=== PATIENT | female | born 1995 | race Caucasian/White ===

== ENCOUNTER 2016-08-19 14:16 | Inpatient (IN) | payer OTHER ==
[~2016-08-19] VITALS: Ht 162.6 cm; Wt 55.3 kg
[2016-08-19 22:59] LABS: *URINE HCG, QUAL NEGATIVE (NEGATIVE)
[2016-08-19 23:00] VITALS: BP 120/76
[2016-08-19 23:03] LABS: *AMPHETAMINE, URINE POSITIVE (NEGATIVE); *BARBITURATE, URINE NEGATIVE (NEGATIVE); *CANNABINOID, URINE NEGATIVE (NEGATIVE); *COCCAINE, URINE NEGATIVE (NEGATIVE); *OPIATE, URINE POSITIVE (NEGATIVE); *PHENCYCLIDINE SCREEN,URINE NEGATIVE (NEGATIVE)
[2016-08-19] MEDS ORDERED: BUPRENORPHINE HCL 2 MG TAB.SUBL SL PRN (23:30)
[2016-08-19] MEDS ORDERED: MAGNESIUM HYDROXIDE 30 ML LIQUID UDC PO PRN (23:30)
[2016-08-19] MEDS ORDERED: LOPERAMIDE HCL 2 MG CAPSULE PO PRN ×2 (23:30)
[2016-08-19] MEDS ORDERED: DIAZEPAM 5 MG TABLET PO PRN (23:30)
[2016-08-19] MEDS ORDERED: ACETAMINOPHEN 325 MG TABLET PO PRN (23:30)
[2016-08-19] MEDS ORDERED: LORAZEPAM 2 MG/1 ML VIAL IM PRN (23:30)
[2016-08-19] MEDS ORDERED: MAG HYDROX/AL HYDROX/SIMETH 30 ML LIQUID UDC PO PRN (23:30)
[2016-08-19] MEDS ORDERED: diphenhydrAMINE 50 MG CAPSULE PO PRN (23:30)
[2016-08-19] MEDS ORDERED: DIAZEPAM 10 MG TABLET PO PRN (23:30)
[2016-08-19] MEDS ORDERED: DICYCLOMINE HCL 20 MG TABLET PO PRN (23:30)
[2016-08-19] MEDS ORDERED: DIAZEPAM 10 MG TABLET ONE (23:48)
[2016-08-19] MEDS ORDERED: METHOCARBAMOL 750 MG TABLET ONE (23:51)
[2016-08-19] MEDS ORDERED: IBUPROFEN 400 MG TABLET ONE (23:52)
[2016-08-20] VITALS (9 sets, daily range): BP systolic 103–118; BP diastolic 64–76
[2016-08-20] MEDS: DIAZEPAM 10 MG TABLET PO PRN ×2 (00:11→08:13)
[2016-08-20] MEDS: ONDANSETRON ODT 4 MG TAB.RAPDIS SL PRN (00:11)
[2016-08-20] MEDS: IBUPROFEN 400 MG TABLET PO PRN ×2 (00:11→20:42)
[2016-08-20] MEDS: METHOCARBAMOL 750 MG TABLET PO PRN (00:11)
--- NOTE | 2016-08-20 00:12 | NUR ---
PRN Valium, Robaxin, Zofran, and Motrin Pt c/o feeling "very anxious", with generalized body aches, nausea, and headache. B/P 112/76, HR 129, RR 16, O2 sat 100%. COWS 7 and CIWA 9. PRN Valium, Robaxin, Zofran and Motrin administered.
[2016-08-20] MEDS ORDERED: ONDANSETRON ODT 4 MG TAB.RAPDIS ONE (00:15)
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
[2016-08-20 00:47] LABS: ALANINE AMINOTRANSFERASE 22 U/L (14-59); ALBUMIN 3.8 g/dL (3.4-5.0); ALKALINE PHOSPHATASE 59 U/L (50-136); AMYLASE 18 U/L (25-115); ASPARTATE AMINOTRANSFERASE 23 U/L (15-37); BILIRUBIN,TOTAL 0.4 mg/dL (0.2-1.0); CALCIUM 9.1 mg/dL (8.5-10.1); CARBON DIOXIDE 32 mmol/L (21-32); CHLORIDE 98 mmol/L (98-107); CREATININE 0.7 mg/dL (0.6-1.3); GFR 105 mL/min (>60); GLUCOSE 100 mg/dL (74-106); LIPASE 91 U/L (73-393); MAGNESIUM 1.7 mg/dL (1.8-2.4); POTASSIUM 4.1 mmol/L (3.5-5.1); SODIUM SERUM 135 mmol/L (136-145); TOTAL PROTEIN, SERUM 7.4 g/dL (6.4-8.2); UREA NITROGEN, BLOOD 11 mg/dL (7-18)
[2016-08-20 00:53] LABS: ETHANOL < 3 MG/DL (0-0)
[2016-08-20 00:54] LABS: BASOPHILS % (AUTO) 0.4 % (0.0-2.0); EOSINOPHILS # (AUTO) 0.1 K/uL (0.0-0.7); EOSINOPHILS % (AUTO) 2.3 % (0.0-7.0); HEMATOCRIT 37.7 % (31.2-41.9); HEMOGLOBIN 12.7 g/dL (10.9-14.3); LYMPHOCYTES # (AUTO) 0.6 K/uL (20.0-40.0); LYMPHOCYTES % (AUTO) 10.3 % (20.5-51.5); MEAN CORPUSCULAR HEMOGLOBIN 29.4 uug (24.7-32.8); MEAN CORPUSCULAR HGB CONC 34 g/dL (32.3-35.6); MEAN CORPUSCULAR VOLUME 87.1 fL (75.5-95.3); MONOCYTES # (AUTO) 0.5 K/uL (2.0-10.0); MONOCYTES % (AUTO) 7.6 % (0.0-11.0); NEUTROPHILS # (AUTO) 4.9 K/uL (1.8-8.9); NEUTROPHILS % (AUTO) 79.4 % (38.5-71.5); PLATELET COUNT (AUTO) 233 K/uL (179-408); RED BLOOD CELL COUNT(AUTO) 4.33 MIL/uL (3.63-4.92); WHITE BLOOD COUNT (AUTO) 6.1 K/uL (3.8-11.8)
[2016-08-20 00:58] LABS: THYROID STIMULATING HORMONE 0.496 mIU/mL (0.358-3.740)
[2016-08-20 01:02] LABS: HIV-1 p24 ANTIGEN NON REACTIVE (NONREACTIVE); HIV-1/2 ANTIBODY NON REACTIVE (NONREACTIVE)
--- NOTE | 2016-08-20 01:12 | NUR ---
PRN Valium, Robaxin, Motrin and Zofran reassessed PRN Valium somewhat effective. PRN Robaxin, Motrin, and Zofran effective. Pt was able to fall asleep. When woken for reassessment she reports feeling somewhat more relaxed and that body aches, headache, and nausea are relieved. B/P 110/72 and HR 112. No further medications requested.
[2016-08-20] MEDS ORDERED: MAGNESIUM OXIDE 400 MG TABLET ONE (03:29)
[2016-08-20] MEDS ORDERED: MAGNESIUM OXIDE 400 MG TABLET PO ONE (04:00)
[2016-08-20] MEDS ORDERED: CLONAZEPAM 1 MG TABLET ONE (04:04)
[2016-08-20] MEDS ORDERED: CLONIDINE HCL 0.1 MG TABLET ONE (04:05)
[2016-08-20] MEDS: CLONIDINE HCL 0.1 MG TABLET PO PRN (04:05)
--- NOTE | 2016-08-20 04:06 | NUR ---
PRN Clonidine administration Pt woke up and reports feeling anxious. Her demeanor and facial expression show worry. B/P 118/75 and HR 110. COWS 5 and CIWA 6. PRN Clonidine administered.
--- NOTE | 2016-08-20 04:07 | NUR ---
Magnesium Supplemented Mag Ox administered for Mg level 1.7
--- NOTE | 2016-08-20 05:05 | NUR ---
PRN Clonidine reassessment PRN Clonidine somewhat effective. Pt reports feeling somewhat more relaxed but has been unable to fall asleep. B/P 116/70 and HR 108. She is in bed writing at this time.
[2016-08-20] MEDS: HYDROXYZINE PAMOATE 25 MG CAPSULE PO PRN (06:00)
[2016-08-20] MEDS ORDERED: HYDROXYZINE PAMOATE 25 MG CAPSULE ONE (06:04)
--- NOTE | 2016-08-20 06:04 | NUR ---
PRN Vistaril administration Pt woke up and reports feeling anxious. B/P 115/72 and HR 123. COWS 5 and CIWA 6. PRN Vistaril administered.
--- NOTE | 2016-08-20 07:22 | NUR ---
END OF SHIFT Report provided to day shift nurse. Pt in her room resting. She is a 21 yo female admitted to [facility] on 08/19 for Opiate and BZD dependence. Pt was tachycardic and reported feeling anxiety. PRN Valium, Robaxin, Motrin, Zofran, Clonidine, and Vistaril. Last COWS 5 and CIWA 6. She drank 500mL and slept for 2 hours.
[2016-08-20] MEDS ORDERED: DIPH25TA62 PO (08:04)
[2016-08-20] MEDS ORDERED: BISA-79 PO (08:04)
[2016-08-20] MEDS: MULTIVITAMINS,THERAPEUTIC TABLET PO SCH (08:12)
--- NOTE | 2016-08-20 08:20 | NUR ---
START OF SHIFT: RECEIVED PT A/O X 4. SHE PRESENTS WITH ANXIOUS MOOD AND AFFECT. PUPILS PIN POINT. SHE C/O SWEATS,ANXIETY,RESTLESS AND STATES SHE ONLY SLEPT A COUPLE OF HOURS. CIWA 9 COWS 5 PRN VALIUM 10 MG PO GIVEN AT 0815 FOR S/S OF W/D.. ENCOURAGED INCREASED FLUIDS AND REST TODAY. TO ASSESS PT THIS AM. PRNS AVAILABLE FOR S/S OF W/D. PPD PLANTED TO LFA. WILL CONTINUE TO MONITOR AND PROVIDE SAFE AND SUPPORTIVE ENVIRONMENT
--- NOTE | 2016-08-20 08:45 | NUR ---
PRN VALIUM EFFECTIVE. CIWA 6. WILL CONTINUE TO MONITOR.
[2016-08-20] MEDS ORDERED: TUBERCULIN,PURIF.PROT.DERIV. 5 TU/0.1 ML TEST ID ONE (09:00)
--- NOTE | 2016-08-20 12:36 | NUR ---
PRN VALIUM 5 MG PO GIVEN FOR CIWA 6. WILL MONITOR EFFECTIVENESS.
--- NOTE | 2016-08-20 13:06 | NUR ---
PRN VALIUM EFFECT AEB CIWA 3. WILL CONTINUE TO MONITOR.
[2016-08-20] MEDS: GABAPENTIN 300 MG CAPSULE PO SCH ×2 (14:48→20:40)
[2016-08-20] MEDS: BUPRENORPHINE HCL 2 MG TAB.SUBL SL SCH ×3 (14:48→20:41)
--- NOTE | 2016-08-20 14:49 | NUR ---
VSS COWS 16 CIWA 14 C/O sweating/chills, body aches, N+V and anxiety. Subutex 4mg sl and Valium 5mg po administered as ordered.
[2016-08-20] MEDS ORDERED: DIAZEPAM 5 MG TABLET PO ONE (15:00)
--- NOTE | 2016-08-20 15:54 | NUR ---
AT BEDSIDE. PT REPORTS TIGHTNESS TO CHEST AND STATES SHE FEELS LIKE SHE IS HAVING A PANIC ATTACK MD STATES NEW ORDERS FOR EKG AND INDERAL X 1. WILL CARRY OUT ORDERS.
[2016-08-20] MEDS ORDERED: PROPRANOLOL HCL 20 MG TABLET PO ONE (16:00)
--- NOTE | 2016-08-20 16:26 | NUR ---
INDERAL EFFECTIVE PT IS ASLEEP.RESPIRATIONS EVEN AND UNLABORED. CALL MARIA IN REACH. BED LOCKED AND LOW.
[2016-08-20] MEDS: DIAZEPAM 10 MG TABLET PO SCH ×2 (17:17→20:40)
--- NOTE | 2016-08-20 17:43 | NUR ---
PT PLACE ON 1:1 SITTER FOR FALL PREVENTION. SIDE RAILS PADDED. HELD 1800 SUBUTEX PER MD FOR SEDATION. WILL CONTINUE TO MONITOR.
--- NOTE | 2016-08-20 19:23 | NUR ---
END OF SHIFT: PT IS ON VALIUM/SUBUTEX TAPER. MD MODIFIED TAPER PT BECAME OVER SEDATED AND 1800 SUBUTEX HELD PER MD.1:1 SITTER AT BEDSIDE FOR SAFETY. LAST COWS 6 CIWA 4. PT C/O CHEST TIGHTNESS AND ANXIETY AND MD ORDERED INDERAL WHICH WAS ADMINISTERED AND EFFECTIVE. PT HAS A CLOSED AREA THAT SHE STATES IS AN ABSCESS. DOXYCYCLINE TO START TONIGHT PER MD. PRN VALIUM X 2 IN AM AND EFFECTIVE BEFORE TAPER STARTED TODAY. ENCORAGED INCREASED FLUIDS. WILL PASS SHIFT REPORT TO ONCOMING NIGHT NURSE.
--- NOTE | 2016-08-20 20:10 | NUR ---
2009 Nurse called down to hospital [facility] for patient assist. Patient found out of wheelchair, lying on patio floor with pillow underneath head. 1 to 1 BHTBecca, at patient's side and she states that patient 'seems' to have had a seizure, lasting less than 15 seconds. Patient's color is pink and she is oriented to person, place, day and her personal situation. Reoriented to date and time. Patient denies any pain. B/P 121/76, P 95 R 18. Patient assisted into wheelchair with n problem Patient state, " I need to have a cigarette before I go anywhere" Patient advised that for her safety, she will be wheeled back to her room # 327. Patient is in no acute distress at this time.
--- NOTE | 2016-08-20 20:15 | NUR ---
2015 Please see SBAR for 2015.
--- NOTE | 2016-08-20 20:20 | NUR ---
Patient awake, though somewhat drowsy and insisting on going to hospital patio for cigarette. Patient advocate, Lele in to certified travel counselor patient.
[2016-08-20] MEDS: LACTOBACILLUS RHAMNOSUS GG 1 EACH CAPSULE PO SCH (20:39)
[2016-08-20] MEDS: DOXYCYCLINE HYCLATE 100 MG TABLET PO SCH (20:40)
--- NOTE | 2016-08-20 20:42 | NUR ---
PRN MEDICATION: Prn Motrin 400 mg p.o. given per c/o headache, 6/10 pain scale.
--- NOTE | 2016-08-20 21:05 | NUR ---
Dr. Molina at nurse's station and he was informed verbally by this nurse about patient's '15 second, possible seizure' noted on hospital patio at 2009, and that patient is insisting frequently, on going back down to the patio to smoke and has threatened to go AMA if she is not allowed to do this. Dr. Molina states to this nurse that patient is to be on "strict room restriction" along with her continued 1 to 1 staff for her safety, as " we take the S word very seriously". Patient so informed per nursing scope.
--- NOTE | 2016-08-20 21:42 | NUR ---
REASSESSMENT PRN MEDICATION: Patient is sleeping with eyes partially closed and quiet, even, unlabored respirations noted at 12. When patient asked if headache was relieved, with prompting, patient slowly nodded her head.
[2016-08-21] VITALS: BP 113/65
--- NOTE | 2016-08-21 | NUR ---
Vital signs are: 98.7-108-14 113/65, O2 Sat 98%. Patient totally uncooperative with CIWA/COWS assessments at this time.
[2016-08-21] MEDS: METHOCARBAMOL 750 MG TABLET PO PRN ×2 (02:41→21:34)
[2016-08-21] MEDS: HYDROXYZINE PAMOATE 25 MG CAPSULE PO PRN (02:41)
[2016-08-21] MEDS: CLONIDINE HCL 0.1 MG TABLET PO PRN (02:41)
--- NOTE | 2016-08-21 02:41 | NUR ---
PRN MEDICATIONS: Patient awake and agitated, loudly saying " I feel like sh-t and I need to have a cigarette now !!" I feel hot flashes, I ache all over and I am nauseous, I think". COWS 6, CIWA 5. 112/61, P 112. Prn Catapres 0.1 mg p.o. given for c/o withdrawal symptoms, Prn Vistaril 50 mg p.o. given for c/o anxiety and Prn Robaxin 750 mg p.o. given for c/o body, muscle aches, " about a 6", 1-10 pain scale.
[2016-08-21] MEDS: ONDANSETRON ODT 4 MG TAB.RAPDIS SL PRN (02:42)
--- NOTE | 2016-08-21 02:42 | NUR ---
PRN MEDICATION: Prn Zofran 0.4 mg SL given for c/o nausea.
--- NOTE | 2016-08-21 03:42 | NUR ---
REASSESSMENT PRN MEDICATIONS: Patient is sleeping soundly in low semi-fowlers position, with eyes closed and respirations quiet, deep, even, unlabored 12. 1 to 1 staff continues at patient's bedside.
[2016-08-21 04:00] VITALS: BP 111/66
--- NOTE | 2016-08-21 04:00 | NUR ---
Vital signs are: 98.6-110-12 111/66 O2 Sat 99%, COWS 3, CIWA 4.
--- NOTE | 2016-08-21 06:30 | NUR ---
0630 Patient slept a total of 7 hours and she had 4 voids and 1 stools in bathroom. Patient steady when up to the bathroom with minimal assist. Total intake was 795 ml p.o. Multiple prn medications given noted separately per floor protocol. V/SS afebrile, COWS 3, COWS 4. Patient drug-seeking, frequently, when awake, asking nurse, " Do you have a shot? Those drugs I can get aren't going to do anything" When can I get the next amount of subs ? When can I get a shot?" If I don't get what I need and get to go downstairs for a cigarette, I will have to leave. I mean I'm not ready and I been wanting to go get high all day long!" Patient is presently sleeping comfortably with eyes closed and respirations quiet, even, unlabored at 12. 1 to 1 staff continues at patient's bedside.
--- NOTE | 2016-08-21 07:00 | NUR ---
start of shift note: received pt from coffee maker servicer nurse, pt at this time remains on 1:1 for seizure/safety precautions. at this time pt is resting in bed. V/S taken and are WNL. pt with complaints of generalized body pain. pt is [facility] for benzo/opiate/meth withdrawal/dependence. will continue to monitor pt for A/R to taper medications
[2016-08-21] MEDS: LACTOBACILLUS RHAMNOSUS GG 1 EACH CAPSULE PO SCH ×2 (08:18→21:34)
[2016-08-21] MEDS: DOXYCYCLINE HYCLATE 100 MG TABLET PO SCH ×2 (08:19→21:34)
[2016-08-21] MEDS: BUPRENORPHINE HCL 2 MG TAB.SUBL SL SCH ×3 (08:19→21:34)
[2016-08-21] MEDS: GABAPENTIN 300 MG CAPSULE PO SCH ×3 (08:19→21:34)
[2016-08-21] MEDS: DIAZEPAM 10 MG TABLET PO SCH ×3 (08:19→21:34)
[2016-08-21] MEDS: MULTIVITAMINS,THERAPEUTIC TABLET PO SCH (08:20)
[2016-08-21 08:45] LABS: CALCIUM 8.8 mg/dL (8.5-10.1); CREATININE 0.8 mg/dL (0.6-1.3); MAGNESIUM 1.8 mg/dL (1.8-2.4); PHOSPHOROUS 4.4 mg/dL (2.5-4.9); POTASSIUM 4.4 mmol/L (3.5-5.1)
[2016-08-21 09:15] LABS: EOSINOPHILS # (AUTO) 0.1 K/uL (0.0-0.7); EOSINOPHILS % (AUTO) 1.1 % (0.0-7.0); HEMATOCRIT 36.7 % (37-47); HEMOGLOBIN 12.3 G/DL (12.0-16.0); LYMPHOCYTES # (AUTO) 1.1 K/uL (20.0-40.0); LYMPHOCYTES % (AUTO) 14.1 % (20.5-51.5); MEAN CORPUSCULAR HEMOGLOBIN 29.1 UUG (27.0-31.0); MEAN CORPUSCULAR HGB CONC 34 g/dL (32.0-37.0); MEAN CORPUSCULAR VOLUME 86.7 FL (81.0-99.0); MONOCYTES # (AUTO) 0.8 K/uL (2.0-10.0); MONOCYTES % (AUTO) 10.3 % (0.0-11.0); NEUTROPHILS # (AUTO) 5.9 K/uL (1.8-8.9); NEUTROPHILS % (AUTO) 74.5 % (38.5-71.5); PLATELET COUNT (AUTO) 227 K/UL (150-450); RED BLOOD CELL COUNT(AUTO) 4.23 MIL/UL (4.2-5.4); RED CELL DISTRIBUTION WIDTH 12.3 % (11.5-14.5); WHITE BLOOD COUNT (AUTO) 7.9 K/UL (4.0-11.2)
[2016-08-21 09:45] VITALS: BP 101/72
[2016-08-21 14:00] VITALS: BP 103/60
[2016-08-21 14:08] LABS: HEPATITIS B CORE AB, IgM Negative (Negative); HEPATITIS B SURFACE AG Negative (Negative)
[2016-08-21] MEDS: KETOROLAC TROMETHAMINE 30 MG INJ IM PRN (15:52)
--- NOTE | 2016-08-21 15:52 | NUR ---
PRN medication administration: pt with complaints of pain on generalized boy and right AC area. Toradol IM was administered pain scale 8/10. will reassess pt
--- NOTE | 2016-08-21 16:43 | NUR ---
prn reassessment toradol was effective pt states she feels better and is able to perform ADLS at this time.
[2016-08-21 18:04] VITALS: BP 109/74
--- NOTE | 2016-08-21 18:28 | NUR ---
end of shift note: pt at this time is in stable condition at this time no s/s of pain or discomfort. pt is [facility] for opiate/benzo/meth withdrawal/dependence. pt's last cows is 5 and ciwa 4. pt remains on 1:1 for seizure precaution and safety. towards the afternoon pt received toradol IM, pt after 1 hr has a pain level of 3, pt is no longer using a wheelchair and pt no longer has unsteady gait. pt without seizure activity throughout the shift. will endorse pt to warehouse shift supervisor nurse
--- NOTE | 2016-08-21 19:15 | NUR ---
Start of Shift Note: Patient is a 21 y/o female admitted on 08/19/16 for Opiate and Benzo dependence. Patient has Hiatal hernia, Esophageal Atresia, Slow gastric emptying, Right knee surgery, Sinus Surgery, Depression & Anxiety. Patient is on a regular diet and with allergies to Mushrooms. Full Code status. Seizure and Fall precaution. Patient is on a 5-day Valium & 5-day Subutex taper and tolerating well. Last COWS is 5 CIWA 4. Patient was given PRN Toradol during day shift. Patient is on 1:1 observation for seizure precaution and safety. Patient is alert & oriented name, place & situation. No shortness of breath noted. Respiration even & unlabored. Abdomen soft & non-distended. No nausea/vomiting noted. Patient noted with sweating, chills, piloerection of skin, larger than normal pupils, & anxiety. Bilateral hand tremors noted. Patient denies hallucinations. Safety precautions are in place. Bed locked in lowest position. Both side rails up. Call light within pts reach. Will continue to monitor patient.
[2016-08-21 20:00] VITALS: BP 107/65
--- NOTE | 2016-08-21 21:34 | NUR ---
PRN Robaxin Patient complains of 7/10 body aches and noted with restlessness and facial grimacing. Non-pharmacological interventions provided but not effective. PRN Robaxin administered as ordered. Will reassess in 1 hour for effectiveness of medication. Will continue to monitor patient.
--- NOTE | 2016-08-21 22:34 | NUR ---
PRN Reassessment Patient verbalized slight relief from body aches. Patient lying in bed and appears comfortable. No s/s of distress noted. Will continue to monitor patient.
[2016-08-22] VITALS (7 sets, daily range): BP systolic 94–114; BP diastolic 63–78
[2016-08-22] MEDS: KETOROLAC TROMETHAMINE 30 MG INJ IM PRN ×2 (00:44→19:53)
--- NOTE | 2016-08-22 00:44 | NUR ---
PRN Toradol & Benadryl Patient complains of 7/10 right arm pain when she moves her arm. Pt noted to be restless and with facial grimacing noted. Hot pack applied but not effective. Pt also requests for medication to help her sleep. PRN Toradol & Benadryl given as ordered. Will reassess in 1 hour for effectiveness of medication. Will continue to monitor patient.
[2016-08-22] MEDS: CLONIDINE HCL 0.1 MG TABLET PO PRN (01:08)
--- NOTE | 2016-08-22 01:08 | NUR ---
PRN Reassessment Patient complains of hot and cold sweats. Vitals WNL. PRN Clonidine administered as ordered. Will reassess for effectiveness of medication.
--- NOTE | 2016-08-22 01:44 | NUR ---
PRN reassessment Patient verbalized slight relief from pain. Patient ntoed with a 4/10 pain on her right arm at this time. Patient lying in bed and appears comfortable. Will continue to monitor patient.
--- NOTE | 2016-08-22 02:08 | NUR ---
PRN Reassessment Patient asleep at this time and appears comfortable in bed. No s/s of distres noted. Safety precautions are in place. Will continue to monitor patient.
--- NOTE | 2016-08-22 07:30 | NUR ---
Start of shift note; Received report from night nurse. Patient a 21 year old female admitted on 08/19/16 for Benzodiazepine/ Opiate and Methamphetamine dependence. Patient was placed on a Valium and Subutex taper. Patient reported history of hiatal hernia, esophageal arteria, slow gastric emptying, right knee surgery, depression, anxiety.Patient is currently under 1:1 supervision for safety. Patient is on fall and seizure precautions. Bed in lowest position, call light within reach. Will continue to monitor patient.
--- NOTE | 2016-08-22 07:40 | NUR ---
Start of Shift Note: Patient is a 21 y/o female admitted on 08/19/16 for Opiate and Benzo dependence. Patient has Hiatal hernia, Esophageal Atresia, Slow gastric emptying, Right knee surgery, Sinus Surgery, Depression & Anxiety. Patient is on a regular diet and with allergies to Mushrooms. Full Code status. Seizure and Fall precaution. Patient is on a 5-day Valium & 5-day Subutex taper and tolerating well. Last COWS is 7 CIWA 6. Patient was given PRN Toradol, benadryl, Catapres & Robaxin during my shift and were effective. Patient is on 1:1 observation for seizure precaution and safety. Patient remained stable and vitals remains WNL. Pt slept for a total of 4 hours. Pt consumed of 200ml of fluids. Voided 1x with 1x bowel movement. All needs attended & met. Safety precautions are in place. Will endorse pt to day shift nurse. Addendum: 08/22/16 at 0801 by LATESHA BENAVIDES RN Error: End of shift note instead of Start of shift
[2016-08-22 08:35] LABS: BASOPHILS # (AUTO) 0.1 K/uL (0.0-8.0); BASOPHILS % (AUTO) 0.8 % (0.0-2.0); EOSINOPHILS # (AUTO) 0.2 K/uL (0.0-0.7); EOSINOPHILS % (AUTO) 3.2 % (0.0-7.0); HEMATOCRIT 37.7 % (37-47); HEMOGLOBIN 12.7 G/DL (12.0-16.0); LYMPHOCYTES # (AUTO) 2.3 K/uL (20.0-40.0); LYMPHOCYTES % (AUTO) 36.3 % (20.5-51.5); MEAN CORPUSCULAR HEMOGLOBIN 29.9 UUG (27.0-31.0); MEAN CORPUSCULAR HGB CONC 34 g/dL (32.0-37.0); MEAN CORPUSCULAR VOLUME 88.7 FL (81.0-99.0); MONOCYTES # (AUTO) 0.9 K/uL (2.0-10.0); MONOCYTES % (AUTO) 13.5 % (0.0-11.0); NEUTROPHILS # (AUTO) 2.9 K/uL (1.8-8.9); NEUTROPHILS % (AUTO) 46.2 % (38.5-71.5); PLATELET COUNT (AUTO) 177 K/UL (150-450); RED BLOOD CELL COUNT(AUTO) 4.25 MIL/UL (4.2-5.4); RED CELL DISTRIBUTION WIDTH 12.6 % (11.5-14.5); WHITE BLOOD COUNT (AUTO) 6.4 K/UL (4.0-11.2)
[2016-08-22] MEDS ORDERED: BUPRENORPHINE HCL 2 MG TAB.SUBL SL SCH (09:00)
[2016-08-22 09:04] LABS: CREATININE 0.8 mg/dL (0.6-1.3); POTASSIUM 4.7 mmol/L (3.5-5.1)
[2016-08-22 09:16] LABS: EOSINOPHILS % (MANUAL) 3 % (0-8); LYMPHOCYTES % (MANUAL) 34 % (20-40); MONOCYTES % (MANUAL) 11 % (2-10); NEUTROPHILS % (MANUAL) 52 % (42-75)
[2016-08-22 09:17] LABS: PLATELET ESTIMATE ADEQUATE
[2016-08-22] MEDS: GABAPENTIN 300 MG CAPSULE PO SCH ×3 (09:42→21:12)
[2016-08-22] MEDS: DOXYCYCLINE HYCLATE 100 MG TABLET PO SCH ×2 (09:42→21:12)
[2016-08-22] MEDS: LACTOBACILLUS RHAMNOSUS GG 1 EACH CAPSULE PO SCH ×2 (09:42→21:12)
[2016-08-22] MEDS: DIAZEPAM 5 MG TABLET PO SCH ×5 (09:42→21:12)
[2016-08-22] MEDS: MULTIVITAMINS,THERAPEUTIC TABLET PO SCH (09:42)
[2016-08-22] MEDS: BUPRENORPHINE HCL 2 MG TAB.SUBL SL SCH ×2 (14:57→21:13)
--- NOTE | 2016-08-22 18:17 | NUR ---
End of shift note; Patient is AOX4. Patient a 21 year old female admitted on 08/19/16 for Benzodiazepine/ Opiate and Methamphetamine dependence. Patient was placed on a Valium and Subutex taper. Patient reported history of hiatal hernia, esophageal arteria, slow gastric emptying, right knee surgery, depression, anxiety. Patient is on fall and seizure precautions. Patient ambulates steadily. Patient remained compliant with treatment plan. Patient received medications as ordered, witnessed patient take all of her medications and inspected mouth after medication administration. Medications were effective in reducing withdrawal symptoms. Met all patient's needs.
--- NOTE | 2016-08-22 19:20 | NUR ---
Start of Shift Patient Received. Patient is in activities room participating in group meeting. 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 Coley. Patient is currently receiving both 5 day Subutex and 5 day Valium tapers. Patient verbalizes no known drug allergies, but food allergies to mushrooms, wishes to be full code, following a regular diet, placed on fall and seizure precautions, skin intact but noted with Right AC possible abscess. Patient continues on Doxycycline 100 PO Q12H. No PRN medications administered. All needs attended to promptly. Will continue plan of care as ordered.
--- NOTE | 2016-08-22 19:53 | NUR ---
PRN Medication Administration Patient noted with increased pain due to the Right AC. Patient verbalized "This just really hurts. Its warm to touch and it hurts me to move my arm." PRN Toradol IM administered for pain of 7/10. Will continue to monitor.
--- NOTE | 2016-08-22 21:15 | NUR ---
PRN Medication Reassessment Patient able to verbalize pain has subsided. Patient states "The medication worked." PRN Toradol noted to be effective. Will continue to monitor.
[2016-08-23 00:25] VITALS: BP 91/66
[2016-08-23 04:55] VITALS: BP 98/62
--- NOTE | 2016-08-23 07:08 | NUR ---
End of Shift Patient is in bed sleeping. Breathing even and non labored. 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 Coley. Patient is currently receiving both 5 day Subutex and 5 day Valium tapers. Patient verbalizes no known drug allergies, but food allergies to mushrooms, full code, regular diet, fall and seizure precautions, skin intact but noted with Right AC possible abscess. Patient continues on Doxycycline 100 PO Q12H. Patient was given PRN Toradol for pain 10/27 to the right AC with medication noted to be effective. All needs attended to promptly. Will endorse to continue plan of care as ordered.
[2016-08-23 08:00] VITALS: BP 95/65
--- NOTE | 2016-08-23 08:15 | NUR ---
START OF SHIFT Received pt this am AOx4. Pt reports she was "actually able to sleep last night." PRN Toradol given per fire watcher with effectiveness. Pt slept 6 hours. She is feeling a little sweaty and anxious this morning with mild body aches. COWS 5 CIWA 3 at 0800. Encouraged attendance of groups and activities this shift. Will provide safe and supportive environment. Patient currently resting in chair with call joe within reach. Will continue to monitor.
[2016-08-23] MEDS: MULTIVITAMINS,THERAPEUTIC TABLET PO SCH (09:02)
[2016-08-23] MEDS: DOXYCYCLINE HYCLATE 100 MG TABLET PO SCH (09:02)
[2016-08-23] MEDS: DIAZEPAM 5 MG TABLET PO SCH ×3 (09:02→21:16)
[2016-08-23] MEDS: LACTOBACILLUS RHAMNOSUS GG 1 EACH CAPSULE PO SCH ×2 (09:02→21:16)
[2016-08-23] MEDS: GABAPENTIN 300 MG CAPSULE PO SCH ×3 (09:02→21:16)
[2016-08-23] MEDS: BUPRENORPHINE HCL 2 MG TAB.SUBL SL SCH ×3 (09:02→21:16)
[2016-08-23 12:00] VITALS: BP 121/86
[2016-08-23] MEDS: KETOROLAC TROMETHAMINE 30 MG INJ IM PRN (14:24)
--- NOTE | 2016-08-23 14:29 | NUR ---
PRN MEDS prn Toradol given for c/o right arm pain 6/10 on pain scale. Will reassess
--- NOTE | 2016-08-23 15:10 | NUR ---
PRN REASSESSMENT Patient states her pain is 0/10 on pain scale. Toradol was effective. Will monitor
[2016-08-23] MEDS: CLINDAMYCIN HCL 300 MG CAPSULE PO SCH ×2 (15:31→21:16)
[2016-08-23 16:00] VITALS: BP 114/77
--- NOTE | 2016-08-23 18:47 | NUR ---
END OF SHIFT Patient continued on 5 day Valium 5 day Subutex taper and tolerating well. Patient reports her s/s of w/d have improved and she is feeling better today. She reports cold sweats and anxiety. Last CIWA 3 COWS 3. Patient given PRN Toradol IM for right arm pain with effectiveness. Patient given warm compresses to decrease pain on arm. Patient attended groups and activities today and socialized with peers during shift. All needs have been met. Safety measures in place. Will pass report to oncoming nurse.
--- NOTE | 2016-08-23 19:15 | NUR ---
Start of Shift Patient Received. Patient is in activities room participating in a group meeting. 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 Coley. Patient is currently receiving both 5 day Subutex and 5 day Valium tapers. Patient verbalizes no known drug allergies, but food allergies to mushrooms, full code, regular diet, fall and seizure precautions, skin intact but noted with Right AC possible abscess. Patient was seen by MD with ATB changed to Clindamycin 600mg Q6H. Patient was given PRN Toradol for increased pain to the right AC with medication noted to be effective. Patient noted with a CIWA and COWS of 3 at 1600. All needs attended to promptly. Will endorse to continue plan of care as ordered.
[2016-08-23 20:50] VITALS: BP 122/79
[2016-08-24 00:03] VITALS: BP_SYST 105; BP_SYST 122; BP_DIAS 65; BP_DIAS 79
[2016-08-24] MEDS: KETOROLAC TROMETHAMINE 30 MG INJ IM PRN ×2 (00:12→18:41)
--- NOTE | 2016-08-24 00:15 | NUR ---
PRN Medication Administration Patient verbalized increased pain 7/10 to the right AC. PRN Toradol administered. Will continue to monitor for effectiveness of medication.
[2016-08-24 04:10] VITALS: BP 96/70
--- NOTE | 2016-08-24 04:10 | NUR ---
PRN Medication Reassessment Patient able to verbalize "my arm feels better." PRN Toradol noted to be effective. Will continue to monitor.
[2016-08-24] MEDS: CLINDAMYCIN HCL 300 MG CAPSULE PO SCH ×3 (06:45→21:58)
--- NOTE | 2016-08-24 07:18 | NUR ---
End of Shift Patient is in bed sleeping. Breathing even and non labored. No signs of pain or discomfort noted. 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 Coley. Patient is currently receiving both 5 day Subutex and 5 day Valium tapers. Patient verbalizes no known drug allergies, but food allergies to mushrooms, full code, regular diet, fall and seizure precautions, skin intact but noted with Right AC possible abscess and is currently receiving Clindamycin 600mg Q6H. Patient received PRN Toradol for increased pain to the right AC with medication noted to be effective. All needs attended to promptly. Will endorse to continue plan of care as ordered.
--- NOTE | 2016-08-24 07:19 | NUR ---
Start of Shift Notes: Received patient in her room. Alert and oriented x 4. Verbally responsive. Respirations even and unlabored. No SOB noted. Skin warm and dry to touch. Abdomen soft and non-distended with (+) BS in all 4 quadrants. No complains of N/V/D or constipation noted. Voids independently. Ambulatory ad huan with steady gait. Patient is a 21 year old female admitted for opiate and BZO dependence who was placed on a 5-day Subutex and 5-day Valium taper as ordered. No adverse reactions noted. Has past medical hx of hiatal hernia, esophageal atresia, slow gastric emptying, right knee surgery, sinus surgery, depression and anxiety. Allergic to mushrooms. FULL CODE. Regular diet. Educated patient on her current medication regimen and the current plan of care for the day. Encouraged oral fluid and encouraged group participation to learn new skills to prevent relapse. All needs met and attended. Will continue to monitor closely.
[2016-08-24 08:00] VITALS: BP 113/66
[2016-08-24] MEDS ORDERED: BUPRENORPHINE HCL 2 MG TAB.SUBL SL SCH (09:00)
[2016-08-24] MEDS: MULTIVITAMINS,THERAPEUTIC TABLET PO SCH (09:05)
[2016-08-24] MEDS: GABAPENTIN 300 MG CAPSULE PO SCH ×3 (09:05→21:58)
[2016-08-24] MEDS: LACTOBACILLUS RHAMNOSUS GG 1 EACH CAPSULE PO SCH ×2 (09:05→21:58)
[2016-08-24] MEDS: DIAZEPAM 5 MG TABLET PO SCH ×2 (09:05→21:58)
[2016-08-24 12:00] VITALS: BP 117/85
--- NOTE | 2016-08-24 14:00 | NUR ---
Mid Shift Note: COWS 3/CIWA 1. Patient is participating in group at this time.
[2016-08-24 16:00] VITALS: BP 112/77
--- NOTE | 2016-08-24 18:40 | NUR ---
Toradol 30 mg IM given: Patient noted with complain of 7/10 right arm pain related to her closed abscess. Unable to be relieved with non-pharmacological intervention. Medicated patient with Toradol 30 mg IM as ordered. Will monitor for effectiveness.
--- NOTE | 2016-08-24 18:58 | NUR ---
End of Shift Notes: Patient is a 21 year old female admitted for opiate and BZO dependence who was placed on a 4-day Subutex and Valium taper as ordered. No adverse reactions noted. Prior to admission, patient was using 12 mg of Xanax a day, 1.5 grams of Heroin and 0.25g of methamphetamine. On Clindamycin as ordered for right forearm closed abscess. VS monitored closely. No significant abnormalities noted. Withdrawal symptoms were closely monitored. Patient presented with anxiety and mild generalized joint pain. Initial COWS 3, CIWA 1. Last COWS 1/CIWA 1. Toradol 30 mg IM was given to patient's right buttock due to complain of 7/10. Completed Subutex taper today. Valium taper will be completed tonight. Per patient, Subutex and Valium has been helping her with her withdrawal symptoms. Patient was able to participate in group therapy sessions. Appetite good. All needs met and attended. Will continue to monitor closely.
--- NOTE | 2016-08-24 19:15 | NUR ---
Start of Shift Patient Received. Patient is in activities room participating in a group meeting. 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 Coley. Patient is currently receiving both 5 day Subutex and 5 day Valium tapers. Patient verbalizes no known drug allergies, but food allergies to mushrooms, full code, regular diet, fall and seizure precautions, skin intact but noted with Right AC possible abscess. Patient was seen by MD with ATB changed to Clindamycin 600mg Q6H. Patient was given PRN Toradol for increased pain to the right AC. Will Reassess medication for effectiveness. Patient noted with a CIWA and COWS of 3 at 1600. All needs attended to promptly. Will endorse to continue plan of care as ordered.
[2016-08-24 20:30] VITALS: BP 142/71
--- NOTE | 2016-08-24 20:30 | NUR ---
PRN Medication Reassessment Patient was given PRN Toradol Injection for pain to right AC. Patient able to verbalize "I feel much better. the pain went away" PRN Toradol noted to be effective. Will continue to monitor.
[2016-08-25 00:30] VITALS: BP 90/68
[2016-08-25 04:44] VITALS: BP 96/56
[2016-08-25] MEDS: CLINDAMYCIN HCL 300 MG CAPSULE PO SCH ×2 (06:39→14:00)
--- NOTE | 2016-08-25 07:30 | NUR ---
Start of shift note; Received report from night nurse. Patient a 21 year old female admitted on 08/19/16 for Benzodiazepine/ Opiate and Methamphetamine dependence. Patient was placed on a Valium and Subutex taper. Patient reported history of hiatal hernia, esophageal arteria, slow gastric emptying, right knee surgery, depression, anxiety. Patient is on fall and seizure precautions. Bed in lowest position, call light within reach. Will continue to monitor patient.
[2016-08-25 08:00] VITALS: BP 120/73
[2016-08-25] MEDS: LACTOBACILLUS RHAMNOSUS GG 1 EACH CAPSULE PO SCH (09:42)
[2016-08-25] MEDS: MULTIVITAMINS,THERAPEUTIC TABLET PO SCH (09:42)
[2016-08-25] MEDS: GABAPENTIN 300 MG CAPSULE PO SCH ×2 (09:42→14:41)
[2016-08-25 12:00] VITALS: BP 114/83
[2016-08-25 14:43] LABS: *AMPHETAMINE, URINE NEGATIVE (NEGATIVE); *BARBITURATE, URINE NEGATIVE (NEGATIVE); *CANNABINOID, URINE NEGATIVE (NEGATIVE); *COCCAINE, URINE NEGATIVE (NEGATIVE); *OPIATE, URINE NEGATIVE (NEGATIVE); *PHENCYCLIDINE SCREEN,URINE NEGATIVE (NEGATIVE)
--- NOTE | 2016-08-25 15:10 | NUR ---
AMA note; Patient decided to leave [facility] against medical advice. Multidisciplinary team, nursing, Discharge staff, client service associate attempted to convince patient to stay and comply and finish treatment plan but patient still insisted to leave the hospital. Dr. Molina was notified, Patient was seen doctor. Patient was educated regarding risk and consequences of leaving against medical advice, patient verbalized understanding. Community resources list given to patient. Patient is AOX4 noted to be in a stable condition, denies S/I and H/I. All patient's belongings, valuables and medications given to patient. Patient left the hospital on 08/25/16 at 1510. Patient left in a stable condition.
== END 2016-08-25 15:10 | disposition left against medical advice (07) | DRG 894 ==
LOC: SRC 21:44
PROVIDERS: ADMIT Internal Medicine; ATTEND Internal Medicine
PROC: HZ2ZZZZ Detoxification Services for Substance Abuse Treatment (ICD-10-PCS; principal; 2016-08-19)
PROC: HZ31ZZZ Individual Counseling for Substance Abuse Treatment, Behavioral (ICD-10-PCS; 2016-08-20)
PROC: HZ41ZZZ Group Counseling for Substance Abuse Treatment, Behavioral (ICD-10-PCS; 2016-08-23)
DX: F11.23 Opioid dependence with withdrawal (principal); L03.113 Cellulitis of right upper limb; F13.230 Sedative, hypnotic or anxiolytic dependence with withdrawal, uncomplicated; Z59.0 Homelessness; Z81.3 Family history of other psychoactive substance abuse and dependence; I80.8 Phlebitis and thrombophlebitis of other sites; S51.031S Puncture wound without foreign body of right elbow, sequela; X78.8XXS Intentional self-harm by other sharp object, sequela; F15.10 Other stimulant abuse, uncomplicated; F17.210 Nicotine dependence, cigarettes, uncomplicated
CPT/HCPCS: 36415; 70030-TC; 71010; 80307; 80324; 80346; 80361; 83690; 83735; 84100; 84443; 84703; 85025; 86580; 86705; 87340; 87806; 93005; A4663; G6040-TC; J1885; J2060; Q0162; Q0163

== ENCOUNTER 2018-04-18 11:12 | Emergency (ER) | payer OTHER ==
[~2018-04-18] VITALS: Ht 162.6 cm; Wt 59.0 kg
[2018-04-18 11:41] LABS: BASOPHILS % (AUTO) 0.6 % (0.0-2.0); EOSINOPHILS % (AUTO) 0.7 % (0.0-7.0); HEMOGLOBIN 12.6 g/dL (10.9-14.3); LYMPHOCYTES # (AUTO) 1.3 K/uL (20.0-40.0); LYMPHOCYTES % (AUTO) 27.8 % (20.5-51.5); MEAN CORPUSCULAR HEMOGLOBIN 28.5 uug (24.7-32.8); MEAN CORPUSCULAR HGB CONC 34 g/dL (32.3-35.6); MONOCYTES # (AUTO) 0.3 K/uL (2.0-10.0); NEUTROPHILS # (AUTO) 3.1 K/uL (1.8-8.9); NEUTROPHILS % (AUTO) 64.9 % (38.5-71.5); PLATELET COUNT (AUTO) 258 K/uL (179-408); RED BLOOD CELL COUNT(AUTO) 4.41 MIL/uL (3.63-4.92); WHITE BLOOD COUNT (AUTO) 4.7 K/uL (3.8-11.8)
[2018-04-18 11:48] LABS: CREATININE 0.8 mg/dL (0.6-1.3)
[2018-04-18 11:53] LABS: BILIRUBIN,TOTAL 0.8 mg/dL (0.2-1.0); TOTAL PROTEIN, SERUM 7.3 g/dL (6.4-8.2)
[2018-04-18 11:58] LABS: *AMPHETAMINE, URINE POSITIVE (NEGATIVE); *BARBITURATE, URINE NEGATIVE (NEGATIVE); *CANNABINOID, URINE NEGATIVE (NEGATIVE); *COCCAINE, URINE NEGATIVE (NEGATIVE); *OPIATE, URINE POSITIVE (NEGATIVE); *PHENCYCLIDINE SCREEN,URINE NEGATIVE (NEGATIVE)
--- NOTE | 2018-04-18 12:31 | NUR ---
Per pt may be d/c back to [facility], I called and staff stated they will come pick her up.
--- NOTE | 2018-04-18 12:55 | NUR ---
Patient discharged to home in stable conditon with staff from [facility]. Written and verbal after care instructions given. Patient and detox staff verbalized understanding of instructions.
== END 2018-04-18 12:56 | disposition home or self-care (01) ==
LOC: ER 11:12
DX: R27.0 Ataxia, unspecified (principal); R40.0 Somnolence; T50.905A Adverse effect of unspecified drugs, medicaments and biological substances, initial encounter; Y92.89 Other specified places as the place of occurrence of the external cause; Z91.018 Allergy to other foods
CPT/HCPCS: 36415; 80307; 85025; A4663